=== PATIENT | male | born 1960 | race American Indian/Alaskan Native ===

== ENCOUNTER 2018-11-10 16:37 | Emergency (ER) | payer OTHER ==
[2018-11-10] MEDS ORDERED: DELTASONE PO ONE (17:57)
[2018-11-10] MEDS ORDERED: NORCO 5/325 PO ONE (17:57)
--- NOTE | 2018-11-10 17:57 | Emergency Department Report ---
Upper Extremity - HPI Chief Complaint: Extremity Injury, Upper Stated Complaint: PAIN IN (L) ARM Time Seen by Provider: 11/10/18 17:02 Upper Extremity: Left Elbow Occurred When: 5 Days Mechanism: Other (HIT IT ON DOOR) Severity: mild Symptoms: Yes Pain with Movement, Yes Swelling, No Deformity, No Limited Range of Movement, No Numbness, No Weakness, No Bruising/Ecchymosis, No Laceration or Abrasion Other History: PT HIT ELBOW ON METAL A COUPLE WEEKS AGO. HAS PERSISTED HURTING HIM. SMALL SWELLING TO AREA ED Review of Systems ROS: Stated complaint: PAIN IN (L) ARM Other details as noted in HPI Comment: All other systems reviewed and negative Constitutional: denies: see HPI ENT: denies: as per HPI Respiratory: denies: no symptoms reported, cough Cardiovascular: denies: palpitations Gastrointestinal: denies: nausea Genitourinary: denies: as per HPI Musculoskeletal: as per HPI, other (L ELBOW PAIN) ED Past Medical Hx - Surgical History Additional Surgical History: kidney donor - Social History Smoking Status: Current Every Day Smoker Substance Use Type: None - Medications Home Medications: Home Medications Medication Instructions Recorded Confirmed Last Taken Type methOCARBAMOL [Robaxin TAB] 500 mg PO Q6H PRN #30 tablet 07/20/15 Unknown Rx methylPREDNISolone [Medrol] 4 mg PO DAILY #1 tab.ds.pk 11/10/18 Unknown Rx traMADol [Ultram] 50 mg PO Q6HR PRN #10 tablet 11/10/18 Unknown Rx Upper Extremity Exam - Exam General: Vital signs noted. No distress. Alert and acting appropriately. 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 ED Disposition Clinical Impression: Bursitis, Arthritis Disposition: DC- TO HOME OR SELFCARE Is pt being admited?: No Does the pt Need Aspirin: No Condition: Stable Instructions: Elbow Bursitis (ED) Additional Instructions: REST ALTERNATE WARM AND COLD COMPRESSES TYLENOL FOR MILD PAIN MEDS ORDERED TODAY ULTRAM FOR SEVERE PAIN LUCIE FOR COMFORT FOLLOW UP ORTHO IF PERSISTS REFERRAL BELOW Prescriptions: methylPREDNISolone [Medrol] 4 mg PO DAILY #1 tab.ds.pk traMADol [Ultram] 50 mg PO Q6HR PRN #10 tablet PRN Reason: Pain Referrals: PRIMARY CAREMD [Primary Care Provider] - 3-5 Days SAYRA JAQUEZ MD [Staff Physician] - 3-5 Days Forms: Work/School Release Form(ED) Time of Disposition: 17:57
--- NOTE | 2018-11-10 18:12 | XRay Report ---
FINAL REPORT PROCEDURE: Left elbow. TECHNIQUE: Three views. HISTORY: ELBOW PAIN.... hit elbow 7 days ago. Tingling and unit secretary problems COMPARISON: No prior studies are available for comparison. FINDINGS: The bones appear intact without fracture or dislocation. The joint spaces appear satisfactory. The so ft tissues are unremarkable. IMPRESSION: No significant abnormality.
[2018-11-10 18:18] VITALS: BP 134/90
== END 2018-11-10 18:17 | disposition home or self-care (01) ==
LOC: ED 16:37
DX: M19.90 Unspecified osteoarthritis, unspecified site (principal); M71.9 Bursopathy, unspecified; F17.200 Nicotine dependence, unspecified, uncomplicated
CPT/HCPCS: 73080; 99283; J7512

== ENCOUNTER 2019-03-16 05:51 | Emergency (ER) | payer OTHER ==
[2019-03-16] MEDS ORDERED: ZOFRAN IV ONE (08:27)
[2019-03-16] MEDS ORDERED: BENADRYL IV ONE (08:28)
[2019-03-16] MEDS ORDERED: FIORICET PO ONE (08:28)
--- NOTE | 2019-03-16 08:33 | Emergency Department Report ---
ED Headache HPI - General Chief Complaint: Headache Stated Complaint: MIGRAINE Time Seen by Provider: 03/16/19 08:12 Source: patient - History of Present Illness Initial Comments: This is a 58-year-old male with a history of migraines times a few years who presents to ED complaining of left-sided perianal to temporal throbbing, constant pain that began around 11:30 PM last night. Patient states he took some Excedrin around 3:30 AM which did not resolve the pain. Patient states that pain is aggravated with light and noise. Patient states his last agreement episode was in 2017. He denies any trauma. Timing/Duration: 24 hours Quality: moderate, throbbing Head Injury Location: temporal, parietal Recent Head Trauma: no recent headache/trauma, chronic headaches, other (issue of migraines) Modifying Factors: worse with: exposure to light Associated Symptoms: denies: confusion, fatigue, facial pain, nasal congestion, nasal drainage, sinus infection, stiff neck Allergies/Adverse Reactions: Allergies No Known Allergies Allergy (Unverified 07/20/15 17:15) Home Medications: Ambulatory Orders methOCARBAMOL [Robaxin TAB] 500 mg PO Q6H PRN #30 tablet 07/20/15 methylPREDNISolone [Medrol] 4 mg PO DAILY #1 tab.ds.pk 11/10/18 traMADol [Ultram] 50 mg PO Q6HR PRN #10 tablet 11/10/18 Butalb/Acetamin/Caff 50-325-40 [Fioricet 50-325-40] 1 tab PO Q6HR PRN #15 tab 03/16/19 SUMAtriptan SUCCINATE [Imitrex] 25 mg PO DAILY #20 tab 03/16/19 ED Review of Systems ROS: Stated complaint: MIGRAINE Other details as noted in HPI Comment: All other systems reviewed and negative ED Past Medical Hx - Past Medical History Previous Medical History?: Yes Hx Headaches / Migraines: Yes - Surgical History Past Surgical History?: Yes Additional Surgical History: kidney donor - Social History Smoking Status: Current Every Day Smoker Substance Use Type: None - Medications Home Medications: Home Medications Medication Instructions Recorded Confirmed Last Taken Type methOCARBAMOL [Robaxin TAB] 500 mg PO Q6H PRN #30 tablet 07/20/15 Unknown Rx methylPREDNISolone [Medrol] 4 mg PO DAILY #1 tab.ds.pk 11/10/18 Unknown Rx traMADol [Ultram] 50 mg PO Q6HR PRN #10 tablet 11/10/18 Unknown Rx Butalb/Acetamin/Caff 50-325-40 1 tab PO Q6HR PRN #15 tab 03/16/19 Unknown Rx [Fioricet 50-325-40] SUMAtriptan SUCCINATE [Imitrex] 25 mg PO DAILY #20 tab 03/16/19 Unknown Rx ED Physical Exam - General Limitations: No Limitations General appearance: alert, in no apparent distress - Head Head exam: Present: atraumatic, normocephalic - Eye Eye exam: Present: normal appearance - ENT ENT exam: Present: mucous membranes moist - Neck Neck exam: Present: normal inspection - Respiratory Respiratory exam: Present: normal lung sounds bilaterally. Absent: respiratory distress - Cardiovascular Cardiovascular Exam: Present: regular rate, normal rhythm. Absent: systolic murmur, diastolic murmur, rubs, gallop - GI/Abdominal GI/Abdominal exam: Present: soft, normal bowel sounds - Rectal Rectal exam: Present: deferred - Extremities Exam Extremities exam: Present: normal inspection - Back Exam Back exam: Present: normal inspection - Neurological Exam Neurological exam: Present: alert, oriented X3, CN II-XII intact, normal gait - Expanded Neurological Exam Expanded Patient oriented to: Present: person, place, time Speech: Present: fluid speech Cerebellar function: Finger to Nose: Normal Motor strength exam: RUE: 5, LUE: 5, RLE: 5, LLE: 5 Best Eye Response ([place]): (4) open spontaneously Best Motor Response (Rigober[place]): (6) obeys commands Best Verbal Response (Rigoberto): (5) oriented [place] Total: 15 - Psychiatric Psychiatric exam: Present: normal affect, normal mood - Skin Skin exam: Present: warm, dry, intact, normal color. Absent: rash ED Course Vital Signs 03/16/19 05:55 Temperature 97.9 F Pulse Rate 56 L Respiratory 18 Rate Blood Pressure 156/79 O2 Sat by Pulse 100 Oximetry ED Medical Decision Making - Medical Decision Making 58-year-old male presents with history of migraine. Patient received IV Benadryl and Zofran in the ED as well as 2 tablets of Fioricet. Discussed the patient will need to follow-up with a neurologist for continued migraine management This with the patient to patient to avoid stressors and triggers for the headache. Patient has no neurological symptoms or signs are normal. Discussed follow-up with primary care physician as well. Critical care attestation.: If time is entered above; I have spent that time in minutes in the direct care of this critically ill patient, excluding procedure time. ED Disposition Clinical Impression: Migraine headache Disposition: TO HOME OR SELFCARE Is pt being admited?: No Does the pt Need Aspirin: No Condition: Stable Instructions: Migraine Headache (ED), Acute Headache (ED) Additional Instructions: Make sure to follow up with the primary care physician as discussed. Take all your medications as you've been prescribed. If you have any worsening symptoms or develop new symptoms please return to ED immediately. Prescriptions: Butalb/Acetamin/Caff 50-325-40 [Fioricet 50-325-40] 1 tab PO Q6HR PRN #15 tab PRN Reason: Headache SUMAtriptan SUCCINATE [Imitrex] 25 mg PO DAILY #20 tab Referrals: PRIMARY MD RAGHAV [Primary Care Provider] - 3-5 Days NICK COULTER MD [Staff Physician] - 3-5 Days [facility] [Provider Group] - 3-5 Days Forms: Work/School Release Form(ED) Time of Disposition: 08:59
[2019-03-16 09:48] VITALS: BP 151/74
== END 2019-03-16 09:46 | disposition home or self-care (01) ==
LOC: ED 05:51
DX: G43.909 Migraine, unspecified, not intractable, without status migrainosus (principal); F17.200 Nicotine dependence, unspecified, uncomplicated
CPT/HCPCS: 96374; 96375; 99282; J1200; J2405

== ENCOUNTER 2019-03-23 04:13 | Emergency (ER) | payer SELFPAY ==
[2019-03-23 04:19] VITALS: BP 151/104
[2019-03-23] MEDS ORDERED: REGLAN IV ONE (05:23)
[2019-03-23] MEDS ORDERED: TORADOL IV ONE (05:23)
[2019-03-23] MEDS ORDERED: BENADRYL IV ONE (05:23)
[2019-03-23] MEDS ORDERED: FIORICET PO ONE (05:25)
[2019-03-23 06:10] LABS: Basophils % (Auto) 0.4 % (0.0-1.8); Eosinophils % (Auto) 0.4 % (0.0-4.3); Hematocrit 42.3 % (35.5-45.6); Hemoglobin 14.2 gm/dl (11.8-15.2); Lymphocytes # (Auto) 1.4 K/mm3 (1.2-5.4); Lymphocytes % (Auto) 15.4 % (13.4-35.0); Mean Corpuscular HGB Conc 34 % (32-34); Mean Corpuscular Volume 92 fl (84-94); Monocytes # (Auto) 0.5 K/mm3 (0.0-0.8); Monocytes % (Auto) 5.2 % (0.0-7.3); Platelet Count 311 K/mm3 (140-440); Red Blood Count 4.61 M/mm3 (3.65-5.03)
[2019-03-23 06:24] LABS: Alanine Aminotransferase 41 units/L (7-56); Albumin 4.5 g/dL (3.9-5); BUN/Creatinine Ratio 11; Blood Urea Nitrogen 14 mg/dL (9-20); Calcium 9.4 mg/dL (8.4-10.2); Hemolysis Index 18
--- NOTE | 2019-03-23 06:43 | Cat Scan Report ---
PROCEDURE: CT HEAD/BRAIN WO CON TECHNIQUE: Computerized tomography of the head was performed without contrast material. HISTORY: headache COMPARISONS: . FINDINGS: The ventricles, cisterns and sulci are within normal limits. No intra parenchymal or extra-axial mas s, hemorrhage, or mass effect. Gallegos and white-matter differentiation is within normal limits. Normal spherical shape of the globes. Paranasal sinuses and mastoid air cells are clear. No skull o r facial fracture visualized. IMPRESSION: No acute intracranial abnormality. This document is electronically signed by Gonsalo Bee MD., March 23 2019 07:41:45 AM ET
--- NOTE | 2019-03-23 07:04 | Emergency Department Report ---
ED General Adult HPI - General Chief complaint: Headache Stated complaint: MIGRAINE Time Seen by Provider: 03/23/19 05:35 Source: patient Mode of arrival: Ambulatory Limitations: No Limitations - History of Present Illness Initial comments: Patient is a 58-year-old -[place] male with a history of chronic migraine headaches who presents to the ED with complaint of acute onset persistent severe left temporal headache with photophobia, nausea and vomiting for the last 3 days. Patient states that he was evaluated and treated for the same about a week ago and was discharged home on Fioricet and Imitrex, and he states that these medications helped but he did not order. Patient states that his ear to appointment with his neurologist for further evaluation. patient denies dizziness, chest pain, shortness of breath, fever, chills, nasal and sinus congestion over palpitations, neck pain or change in vision. MD Complaint: Migraine headache -: Sudden, days(s) (3) Severity scale (0 -10): 8 Quality: aching, sharp, constant Consistency: constant Improves with: medication Worsens with: none Associated Symptoms: headaches. denies: confusion, chest pain, cough, diaphoresis, fever/chills, loss of appetite, malaise, nausea/vomiting, rash, seizure, shortness of breath, syncope, weakness - Related Data Previous Rx's Medication Instructions Recorded Last Taken Type methOCARBAMOL [Robaxin TAB] 500 mg PO Q6H PRN #30 tablet 07/20/15 Unknown Rx methylPREDNISolone [Medrol] 4 mg PO DAILY #1 tab.ds.pk 11/10/18 Unknown Rx traMADol [Ultram] 50 mg PO Q6HR PRN #10 tablet 11/10/18 Unknown Rx Butalb/Acetamin/Caff 50-325-40 1 tab PO Q6HR PRN #15 tab 03/16/19 Unknown Rx [Fioricet 50-325-40] SUMAtriptan SUCCINATE [Imitrex] 25 mg PO DAILY #20 tab 03/16/19 Unknown Rx Amoxicillin/Potassium Clav 1 each PO Q12H #20 tablet 03/23/19 Unknown Rx [Augmentin 875-125 Tablet] Butalb/Acetamin/Caff 50-325-40 1 - 2 each PO Q4H PRN #15 tablet 03/23/19 Unknown Rx [Fioricet 50-325-40] Promethazine [Phenergan] 25 mg PO Q6HR PRN #20 tab 03/23/19 Unknown Rx SUMAtriptan SUCCINATE [Imitrex] 50 mg PO BID #30 tab 03/23/19 Unknown Rx Allergies Allergy/AdvReac Type Severity Reaction Status Date / Time No Known Allergies Allergy Unverified 07/20/15 17:15 ED Review of Systems ROS: Stated complaint: MIGRAINE Other details as noted in HPI Comment: All other systems reviewed and negative Constitutional: no symptoms reported, see HPI. denies: diaphoresis, fever, malaise, weakness Eyes: as per HPI. denies: eye pain, eye discharge ENT: as per HPI. denies: ear pain, throat pain, dental pain, hearing loss, epi staxis Respiratory: no symptoms reported, see HPI. denies: cough, shortness of breath, SOB with exertion Cardiovascular: as per HPI. denies: chest pain, palpitations, dyspnea on exertion, edema, syncope, paroxysmal nocturnal dyspnea Endocrine: no symptoms reported, see HPI. denies: excessive sweating, flushing, intolerance to cold, intolerance to heat, increased hunger, increased urine Gastrointestinal: as per HPI, nausea, vomiting. denies: diarrhea, constipation, hematemesis, hematochezia, other Genitourinary: as per HPI. denies: urgency, frequency, hematuria, discharge, testicular pain, testicular mass Musculoskeletal: as per HPI. denies: joint swelling, arthralgia Skin: as per HPI. denies: rash, lesions, change in color, change in hair/nails Neurological: as per HPI, headache. 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 - Surgical History Past Surgical History?: Yes Additional Surgical History: kidney donor - Social History Smoking Status: Current Some Day Smoker - Medications Home Medications: Home Medications Medication Instructions Recorded Confirmed Last Taken Type methOCARBAMOL [Robaxin TAB] 500 mg PO Q6H PRN #30 tablet 07/20/15 Unknown Rx methylPREDNISolone [Medrol] 4 mg PO DAILY #1 tab.ds.pk 11/10/18 Unknown Rx traMADol [Ultram] 50 mg PO Q6HR PRN #10 tablet 11/10/18 Unknown Rx Butalb/Acetamin/Caff 50-325-40 1 tab PO Q6HR PRN #15 tab 03/16/19 Unknown Rx [Fioricet 50-325-40] SUMAtriptan SUCCINATE [Imitrex] 25 mg PO DAILY #20 tab 03/16/19 Unknown Rx Amoxicillin/Potassium Clav 1 each PO Q12H #20 tablet 03/23/19 Unknown Rx [Augmentin 875-125 Tablet] Butalb/Acetamin/Caff 50-325-40 1 - 2 each PO Q4H PRN #15 tablet 03/23/19 Unknown Rx [Fioricet 50-325-40] Promethazine [Phenergan] 25 mg PO Q6HR PRN #20 tab 03/23/19 Unknown Rx SUMAtriptan SUCCINATE [Imitrex] 50 mg PO BID #30 tab 03/23/19 Unknown Rx ED Physical Exam - General Limitations: No Limitations General appearance: alert, in no apparent distress - Head Head exam: Present: atraumatic, normocephalic, normal inspection - Eye Eye exam: Present: normal appearance, PERRL, EOMI - ENT ENT exam: Present: normal exam, normal orophraynx, mucous membranes moist, TM's normal bilaterally, normal external ear exam - Neck Neck exam: Present: normal inspection. Absent: tenderness, meningismus, full ROM, thyromegaly - Respiratory Respiratory exam: Present: normal lung sounds bilaterally. Absent: respiratory distress, wheezes, stridor, chest wall tenderness, accessory muscle use, decreased breath sounds, prolonged expiratory - Cardiovascular Cardiovascular Exam: Present: regular rate, normal rhythm, normal heart sounds - GI/Abdominal GI/Abdominal exam: Present: soft, normal bowel sounds. Absent: distended, te nderness, hyperactive bowel sounds, hypoactive bowel sounds - Rectal Rectal exam: Present: deferred - Extremities Exam Extremities exam: Present: normal inspection, full ROM, normal capillary refill - Back Exam Back exam: Present: normal inspection, full ROM - Neurological Exam Neurological exam: Present: alert, oriented X3, CN II-XII intact, normal gait - Psychiatric Psychiatric exam: Present: normal affect - Skin Skin exam: Present: warm, dry, intact, normal color ED Course Vital Signs 06/01/0603/23/19 03/23/19 04:18 04:22 05:47 Temperature 97.4 F L 97.4 F L Pulse Rate 58 L 55 L Respiratory 18 20 16 Rate Blood Pressure 151/104 151/104 O2 Sat by Pulse 98 97 Oximetry 03/23/19 06:02 Temperature Pulse Rate Respiratory 16 Rate Blood Pressure O2 Sat by Pulse Oximetry - Reevaluation(s) Reevaluation #1: 03/23/19 07:10 Patient is alert and oriented 3 and is not in distress with normal vital signs. Labs were drawn and head CT scan without contrast was ordered. Patient was treated for migraine headache. Head CT scan without contrast shows no acute intracranial abnormalities. Lab test results were reviewed and are unremarkable. On reevaluation, patient's headache has resolved and patient was discharged home on medications and advised to follow-up with his primary care physician and his neurologist in 2-3 days for reevaluation. Patient however was advised to return to the ED immediately if symptoms get worse. ED Medical Decision Making - Lab Data Result diagrams: 03/23/19 05:42 03/23/19 05:42 - Medical Decision Making Patient is alert and oriented 3 and is not in distress with normal vital signs. Labs were drawn and head CT scan without contrast was ordered. Patient was treated for migraine headache. Head CT scan without contrast shows no acute intracranial abnormalities. Lab test results were reviewed and are unremarkable. On reevaluation, patient's headache has resolved and patient was discharged home on medications and advised to follow-up with his primary care physician and his neurologist in 2-3 days for reevaluation. Patient however was advised to return to the ED immediately if symptoms get worse. - Differential Diagnosis Migraine headache, nausea, photophobia Critical care attestation.: If time is entered above; I have spent that time in minutes in the direct care of this critically ill patient, excluding procedure time. ED Disposition Clinical Impression: Migraine headache Qualifiers: Migraine type: without aura Status migrainosus presence: with status migrainosus Intractability: not intractable Qualified Code(s): G43.001 - Migraine without aura, not intractable, with status migrainosus Disposition: DC-01 TO HOME OR SELFCARE Is pt being admited?: No Does the pt Need Aspirin: No Condition: Stable Instructions: Migraine Headache (ED) Additional Instructions: Take medications, drink plenty of fluids and follow-up with your neurologist or primary care physician in 3-5 days for reevaluation. Return to the ED immediately if symptoms get worse. Prescriptions: Amoxicillin/Potassium Clav [Augmentin 875-125 Tablet] 1 each PO Q12H #20 tablet Butalb/Acetamin/Caff 50-325-40 [Fioricet 50-325-40] 1 - 2 each PO Q4H PRN #15 tablet PRN Reason: Headache SUMAtriptan SUCCINATE [Imitrex] 50 mg PO BID #30 tab Promethazine [Phenergan] 25 mg PO Q6HR PRN #20 tab PRN Reason: Nausea Referrals: [facility] [Outside] - 3-5 Days Time of Disposition: 07:15 Print Language: KAZAKH
== END 2019-03-23 07:42 | disposition home or self-care (01) ==
LOC: ED 04:13
DX: G43.909 Migraine, unspecified, not intractable, without status migrainosus (principal); R11.2 Nausea with vomiting, unspecified; H53.149 Visual discomfort, unspecified; F17.200 Nicotine dependence, unspecified, uncomplicated
CPT/HCPCS: 36415; 70450; 80053; 85025; 93005; 93010; 96374; 96375; 99284; J1200; J1885; J2765